=== PATIENT | male | born 1975 | race Two or more races ===

== ENCOUNTER 2022-03-31 20:42 | Emergency (ER) | payer SELFPAY ==
[~2022-03-31] VITALS: Ht 182.9 cm; Wt 113.4 kg
[2022-03-31] MEDS ORDERED: ASPIRIN 325 MG TABLET PO ONE (21:00)
[2022-03-31] MEDS ORDERED: ASPIRIN 325 MG TABLET ONE (21:05)
[2022-03-31] MEDS ORDERED: hydrALAZINE HCL 20 MG/1 ML VIAL ONE (21:05)
[2022-03-31 21:26] LABS: HEMATOCRIT 49.7 % (36.7-47.1); MEAN CORPUSCULAR HEMOGLOBIN 29.4 uug (23.8-33.4); MEAN CORPUSCULAR VOLUME 86.1 fL (73.0-96.2); PLATELET COUNT (AUTO) 172 K/uL (152-348)
[2022-03-31] MEDS: hydrALAZINE HCL 20 MG/1 ML VIAL IV ONE ×2 (21:39→21:40)
[2022-03-31 21:41] LABS: CARBON DIOXIDE 25 mmol/L (21-32); CHLORIDE 102 mmol/L (98-107); CREATININE 1.1 mg/dL (0.6-1.3); GLUCOSE 119 mg/dL (74-106); POTASSIUM 3.2 mmol/L (3.5-5.1); UREA NITROGEN, BLOOD 23 mg/dL (7-18)
--- NOTE | 2022-03-31 21:45 | NUR ---
Patient BIB [facility] from home for c/o left arm and body "heaviness". SBP in the field was 216 with HR of 126. Patient symptoms started 1hr [employer].
[2022-03-31 21:54] LABS: ALANINE AMINOTRANSFERASE 65 U/L (16-63); ALKALINE PHOSPHATASE 72 U/L (50-136); ASPARTATE AMINOTRANSFERASE 28 U/L (15-37); BILIRUBIN,DIRECT 0.1 mg/dL (0.0-0.2); BILIRUBIN,TOTAL 0.3 mg/dL (0.2-1.0); TOTAL PROTEIN, SERUM 7.8 g/dL (6.4-8.2)
[2022-03-31] MEDS ORDERED: LABETALOL HCL 100 MG/20 ML VIAL IV ONE (22:15)
[2022-03-31] MEDS ORDERED: LABETALOL HCL 100 MG/20 ML VIAL ONE (22:37)
--- NOTE | 2022-03-31 23:58 | NUR ---
Dr. Young on bedside.
[2022-04-01] MEDS ORDERED: AMLO10TA4 PO (00:38)
[2022-04-01] MEDS ORDERED: LOSA100T31 PO (00:38)
[2022-04-01 00:48] VITALS: BP 152/100
--- NOTE | 2022-04-01 00:48 | NUR ---
Patient discharged to home in stable condition. Written and verbal after care instructions given. Patient verbalizes understanding of instructions. Stressed follow up or return to ER for worsening s/s. Patient ambulated fr the ER with steady gait. All belongings with patient.
== END 2022-04-01 00:49 | disposition home or self-care (01) ==
LOC: ER 20:42
DX: I16.9 Hypertensive crisis, unspecified (principal); I11.9 Hypertensive heart disease without heart failure; Z80.9 Family history of malignant neoplasm, unspecified; R00.0 Tachycardia, unspecified; Z79.899 Other long term (current) drug therapy; R51.9 Headache, unspecified
CPT/HCPCS: 99291; 96374; 70450; 96375; 80076; 80048; 83880; 85025; 85379; 85730; 86850; 86900; 86901; 84484; 36415; 93005; 71045; 80307; J0360; J3490; A4663